=== PATIENT | female | born 2000 | race Caucasian/White ===

== ENCOUNTER 2019-07-18 18:18 | Emergency (ER) | payer OTHER ==
[~2019-07-18] VITALS: Ht 157.5 cm; Wt 44.0 kg
--- NOTE | 2019-07-18 18:35 | NUR ---
[id number], FROM WORK, HAD A SYNCOPAL EPISODE, BUMP AT THE BACK OF HEAD. PATIENT A/OX4, NO SOB NOTED, KEPT COMFORTABLE, ATTACHED TO THE TELEPHONE ORDER SUPERVISOR. NO DISTRESS NOTED. DR. UNDERWOOD AT BEDSIDE FOR EVAL. NEEDS ATTENDED.
[2019-07-18 18:54] LABS: BASOPHILS # (AUTO) 0.1 /CMM (0.0-0.2); BASOPHILS % (AUTO) 1.3 % (0.0-2.0); EOSINOPHILS % (AUTO) 5.5 % (0.0-6.0); HEMATOCRIT 39 % (33-45); LYMPHOCYTES # (AUTO) 2.8 /CMM (0.8-4.8); LYMPHOCYTES % (AUTO) 25.3 % (20.0-44.0); MEAN CORPUSCULAR HGB CONC 34 g/dl (31.0-36.0); MEAN CORPUSCULAR VOLUME 97 fL (82-100); MONOCYTES % (AUTO) 9.2 % (2.0-12.0); NEUTROPHILS # (AUTO) 6.4 /CMM (1.8-8.9); NEUTROPHILS % (AUTO) 58.7 % (43.0-81.0); PLATELET COUNT (AUTO) 317 /CMM (150-450); RED BLOOD CELL COUNT(AUTO) 3.98 MIL/uL (4.0-5.2)
[2019-07-18] MEDS ORDERED: IV NS 0.9% 1,000 ML BAG IV ONE (19:00)
[2019-07-18 19:20] LABS: ALCOHOL, BLOOD < 3 mg/dL (0-0)
--- NOTE | 2019-07-18 19:36 | NUR ---
PATIENT A/OX4, BREATHING EVEN AND UNLABORED, NO SOB NOTED. KEPT COMFORTABLE, VS STABLE. ENDORSED TO [facility] FOR [facility].
--- NOTE | 2019-07-18 20:05 | NUR ---
PT TRANSPORTED TO RADIOLOGY FOR CT HEAD.
--- NOTE | 2019-07-18 20:11 | NUR ---
PT RETURNED FROM RADIOLOGY VIA [facility]
[2019-07-18 20:14] VITALS: BP 107/63
[2019-07-18 20:34] LABS: CALCIUM, SERUM 8.8 mg/dL (8.5-10.1); CARBON DIOXIDE 27 mmol/L (21-32); CHLORIDE 105 mmol/L (98-107); GLUCOSE 90 mg/dL (74-106); POTASSIUM 3.4 mmol/L (3.5-5.1); SODIUM SERUM 141 mmol/L (136-145); UREA NITROGEN, BLOOD 13 mg/dL (7-18)
[2019-07-18 20:46] LABS: ALANINE AMINOTRANSFERASE 19 U/L (12-78); ALKALINE PHOSPHATASE 64 U/L (46-116); ASPARTATE AMINOTRANSFERASE 17 U/L (15-37); BILIRUBIN,DIRECT 0.1 mg/dL (0.0-0.2); BILIRUBIN,TOTAL 0.3 mg/dL (0.2-1.0); TOTAL PROTEIN, SERUM 7.6 g/dL (6.4-8.2)
[2019-07-18] MEDS ORDERED: POTASSIUM CHLORIDE 20 MEQ TAB.PRT.SR PO ONE ×2 (21:00→21:02)
--- NOTE | 2019-07-18 21:07 | NUR ---
IV removed. Catheter intact and site benign. Pressure and 4x4 applied to site. No bleeding noted.Patient discharged to home in stable condition. Written and verbal after care instructions given. Patient verbalizes understanding of instruction.
== END 2019-07-18 21:10 | disposition home or self-care (01) ==
LOC: ER 18:20
DX: R55 Syncope and collapse (principal); E87.6 Hypokalemia; E86.0 Dehydration; F12.10 Cannabis abuse, uncomplicated; F41.9 Anxiety disorder, unspecified; Z60.2 Problems related to living alone
CPT/HCPCS: 36415; 70450; 80048; 80076; 80305; 80307; 84484; 84702; 85025; 85378; 93005; 96360; 99284; J7030; G0480